=== PATIENT | male | born 1970 | race Caucasian/White ===

== ENCOUNTER → 2017-07-28 | Outpatient (CLI) | payer OTHER ==
--- NOTE | 2017-07-28 17:00 | US ---
EXAMINATION TYPE: US renals and bladder DATE OF EXAM: 07/28/2017 COMPARISON: NONE CLINICAL HISTORY: N23 Unspecified Renal Colic. left side pain. Hx of renal stones. EXAM MEASUREMENTS: Right Kidney: 9.1 x 4.8 x 5.5 cm Left Kidney: 10.8 x 6.9 x 6.9 cm cm Right Kidney: wnl Left Kidney: There is mild hydronephrosis. Two echogenic foci seen with shadowing: Mid pole= 0.7, lo wer pole= 0.8 cm. Bladder: moderately distended, wnl as visualized Bilateral Jets seen No masses are identified. The urinary bladder is anechoic. Bilateral ureteral jets are seen. Cortical medullary differentiation is maintained. IMPRESSION: Left nephrolithiasis with mild hydronephrosis could be indicative of ureteral calculus and partially obstructive stone
== END | disposition home or self-care (01) ==
LOC: RADUSMAIN 15:43
PROVIDERS: ATTEND Family Medicine
DX: N13.2 Hydronephrosis with renal and ureteral calculous obstruction (principal)
CPT/HCPCS: 76770

== ENCOUNTER → 2017-08-17 | Outpatient (CLI) | payer OTHER ==
--- NOTE | 2017-08-17 09:47 | US ---
EXAMINATION TYPE: US kidneys/renal and bladder DATE OF EXAM: 08/17/2017 COMPARISON: US 2018 CLINICAL HISTORY: N13.2 hydronephrosis. Follow up left renal stones and hydronephrosis seen on recent US EXAM MEASUREMENTS: Right Kidney: 10.1 x 5.6 x 6.4 cm Left Kidney: 10.7 x 5.8 x 5.6 cm Right Kidney: no hydronephrosis, multiple small echogenic shadowing foci seen at mid pole = 0.6cm and inferior pole = 0.5cm Left Kidney: no hydronephrosis seen, multiple small echogenic shadowing foci seen at mid pole = 0.7cm and inferior pole = 0.8cm and 0.7cm Bladder: wnl Bilateral Jets seen: yes There is no evidence for hydronephrosis at this point in time. No masses are identified. The urinar y bladder is anechoic. Bilateral ureteral jets are seen. IMPRESSION: Bilateral nonobstructing renal calculi. The previously seen mild left hydronephrosis has resolved in the interim.
== END | disposition home or self-care (01) ==
LOC: RADUSWWP 08:18
PROVIDERS: ATTEND Family Medicine
DX: N20.0 Calculus of kidney (principal)
CPT/HCPCS: 76770

== ENCOUNTER 2021-04-09 06:19 | Day surgery (SDC) | payer BC, OTHER ==
[2021-04-06 14:37] VITALS: BMI 44.6
[~2021-04-09 06:19] MED LIST: LACTATED RINGERS 1,000 ML IV SCH
[2021-04-09 06:40] VITALS: TEMP 97.8
[2021-04-09] MEDS ORDERED: LACTATED RINGERS 1,000 ML IV ONE ×2 (06:41)
[2021-04-09 06:49] LABS: Glucose,Whole Blood 107 mg/dL (75-99)
[2021-04-09] MEDS ORDERED: PROPOFOL 10 MG/ML 20 ML VIAL IV ONE (07:02)
[2021-04-09] MEDS ORDERED: LIDOCAINE 1% INJ 10MG/ML (20 ML MDV) ONE (07:02)
--- NOTE | 2021-04-09 07:25 | P.PCN ---
Date of Procedure: 04/09/21 Procedure(s) Performed: BRIEF HISTORY: Patient is a 50-year-old pleasant male scheduled for an elective colonoscopy as a part of screening for colorectal neoplasia. PROCEDURE PERFORMED: Colonoscopy with biopsy . PREOPERATIVE DIAGNOSIS: screening for colon cancerIV sedation per Anesthesia. PROCEDURE: After informed consent was obtained, the patient, was brought into the endoscopy unit. IV sedation was administered by Anesthesia under continuous monitoring. Digital rectal examination was normal. Initially the Olympus CF-160 flexible video colonoscope was then inserted in the rectum, gradually advanced into the cecum without any difficulty. Careful examination was performed as the scope was gradually being withdrawn. Ileocecal valve and the appendiceal orifice were visualized and appeared normal. Prep was excellent. Mucosa of the cecum, ascending colon, transverse colon, descending colon, appeared normal. The sigmoid colon there was scattered diverticulosis and mild erythema consistent with s diverticular associated colitis and biopsies were done from this area. Also there was a 3 mm polyp in the descending sigmoid colon that was biopsied. sigmoid colon, and rectum appeared normal. Retroflexion was performed in the rectum and no lesions were seen. The patient tolerated the procedure well. IMPRESSION: 3-4 mm sigmoid colon polyp status post cold biopsy Mild sigmoid diverticular associated colitis Scattered sigmoid diverticulosis RECOMMENDATIONS: Findings of this examination were discussed with the patient as well as a family. she was advised for the biopsy results. If the biopsy result adenoma he can have a repeat colonoscopy in 5 years..
[2021-04-09 07:27] VITALS: RESP 16
[2021-04-09 07:39] VITALS: BP 121/81; PULSE 72
== END 2021-04-09 08:19 | disposition home or self-care (01) ==
LOC: ORWHC2ENDO 06:19
PROVIDERS: ATTEND Internal Medicine Gastroenterology
DX: Z12.11 Encounter for screening for malignant neoplasm of colon (principal); D12.5 Benign neoplasm of sigmoid colon; K57.30 Diverticulosis of large intestine without perforation or abscess without bleeding; Z79.899 Other long term (current) drug therapy; I10 Essential (primary) hypertension; E78.5 Hyperlipidemia, unspecified; E11.9 Type 2 diabetes mellitus without complications; E66.01 Morbid (severe) obesity due to excess calories; Z68.41 Body mass index [BMI] 40.0-44.9, adult; Z98.890 Other specified postprocedural states; Z88.6 Allergy status to analgesic agent
CPT/HCPCS: 88305; 45380; J2001; J2704

== ENCOUNTER → 2022-10-04 | Outpatient (CLI) | payer BC ==
--- NOTE | 2022-10-04 14:59 | US ---
EXAMINATION TYPE: US abdomen complete DATE OF EXAM: 10/04/2022 COMPARISON: NONE CLINICAL HISTORY: R10.9 UNSPECIFIED ABDOMINAL PAIN. pain limited due to body habitus and bowel gas. TECHNIQUE: Multiple sonographic images of the abdomen are obtained. FINDINGS: EXAM MEASUREMENTS: Liver Length: 17.4 cm normal less than 15.5 cm. Gallbladder Wall: .2 cm CBD: .3 cm Spleen: 12 cm Right Kidney: 10.4 x 5.5 x 5.5 cm Left Kidney: 10.5 x 7.5 x 4.8 cm PUBLIC SPEAKER NOTES: Pancreas: Obscured by bowel gas Liver: Increased attenuation compatible with mild to moderate fatty infiltration of the liver. Mild hepatomegaly is present. Gallbladder: No stones seen Evidence for sonographic Champagne's sign: No CBD: wnl Spleen: wnl Right Kidney: wnl Left Kidney: Echogenic foci seen lower pole compatible with nonobstructing renal stone. Upper IVC: wnl Abd Aorta: Limited IMPRESSION: 1. Hepatomegaly with mild to moderate fatty infiltration of the liver. 2. Nonobstructing inferior pole left renal stone
== END | disposition home or self-care (01) ==
LOC: RADUSWWP 13:25
PROVIDERS: ATTEND Family Medicine
DX: N20.0 Calculus of kidney (principal); K76.0 Fatty (change of) liver, not elsewhere classified; R16.0 Hepatomegaly, not elsewhere classified
CPT/HCPCS: 76700

== ENCOUNTER → 2023-12-07 | Outpatient (CLI) | payer OTHER ==
[2023-12-07 12:35] LABS: African American GFR (CKD) 65 (>60 ml/min/1.73 sqM); Blood Urea Nitrogen 24 mg/dL (9-20); Non-African American GFR(CKD) 56 (>60 ml/min/1.73 sqM)
--- NOTE | 2023-12-07 15:24 | CT ---
CT urogram with and without contrast HISTORY: Hematuria COMPARISON: None TECHNIQUE: Multiple axial images are obtained through the abdomen and pelvis before and after the une ventful administration of nonionic IV contrast material. Delayed postcontrast images were obtained. FINDINGS: Lung bases are clear. On the pre-IV contrast images, there are no gallstones. There are 3-4 nonobstructing right renal calcifications the largest of which measure 0.60 5.5 mm. There are no focal masses within the liver, pancreas, spleen or adrenal glands and there is no organo megaly. There is marked left-sided hydronephrosis and hydroureter secondary to a 12.4 mm obstructing calculus in the distal left ureter at approximately the L5-S1 level. The bowel loops are normal in caliber and there is no dilatation or obstruction. No inflammatory kathleen ges are identified in the bowel wall or mesentery. There is no free intraperitoneal air or fluid. Mod erate diverticulosis of the descending and sigmoid colon without CT evidence of diverticulitis. There is no pelvic mass, free fluid, abscess or adenopathy. The osseous structures are intact. IMPRESSION: 1. Marked left hydronephrosis and hydroureter secondary to 12.4 mm obstructing calculus in the distal left ureter at approximately the L5-S1 level. 2. Multiple 4 to 5 mm nonobstructing right renal calculi as described above.
== END | disposition home or self-care (01) ==
LOC: RADCTMAIN 11:45
PROVIDERS: ATTEND Family Medicine
DX: N13.2 Hydronephrosis with renal and ureteral calculous obstruction (principal)
CPT/HCPCS: 82565; 84520; 74178; 36415; 74400; Q9967

== ENCOUNTER 2023-12-21 09:02 | Day surgery (SDC) | payer OTHER ==
--- NOTE | 2023-12-20 18:09 | P.GSHP ---
History of Present Illness H&P Date: 12/20/23 Chief Complaint: Low back pain, gross hematuria The patient is a 52-year-old white male who had an episode of urolithiasis 1 year ago. 2 weeks ago, he experienced low back discomfort and gross hematuria. Imaging has shown marked left hydroureteronephrosis due to a 12.4 mm left distal ureteral calculus at the L5-S1 level. The left renal parenchyma is thinned. Several small right renal calculi are seen. Renal ultrasound in September 2022 showed a left lower pole renal calculus, with no evidence of hydronephrosis. - Constitutional Constitutional: Denies chills, Denies fever - Cardiovascular Cardiovascular: Reports high blood pressure - Gastrointestinal Gastrointestinal: Denies nausea, Denies vomiting - Genitourinary (Male) Genitourinary: Reports flank pain, Reports hematuria, Reports kidney stones Past Medical History Past Medical History: Asthma, Diabetes Mellitus, GERD/Reflux, Hyperlipidemia, Hypertension, Osteoarthritis (OA), Skin Disorder Additional Past Medical History / Comment(s): GI issues lately, cramping, diarhhea and constipation from ozempic intermittent. current Kidney stones. Psorasis left arm. allergies, allergy induced asthma History of Any Multi-Drug Resistant Organisms: None Reported Past Surgical History: Orthopedic Surgery Additional Past Surgical History / Comment(s): Cyst removed from foot, left shoulder rotator cuff surgery, surgery to nerve in right elbow. wisdom teeth removed Past Anesthesia/Blood Transfusion Reactions: No Reported Reaction Smoking Status: Current every day smoker - Past Family History Mother Family Medical History: Myocardial Infarction ([place]) Additional Family Medical History / Comment(s): Father Family Medical History: Diabetes Mellitus Additional Family Medical History / Comment(s): pancreatitis, flesh eating ba cteria- Sister(s) Family Medical History: Pulmonary Embolus Medications and Allergies Home Medications Medication Instructions Recorded Confirmed Type Aspirin [Adult Low Dose Aspirin EC] 81 mg PO DAILY 04/06/21 12/20/23 History Atorvastatin (Unknown Dose) 20 mg PO HS 04/06/21 12/20/23 History Cinnamon Bark [Cinnamon] 500 mg PO DAILY 04/06/21 12/20/23 History Kidney Supplement 1 tab PO DAILY 04/06/21 12/20/23 History Multivitamins, Thera [Multivitamin 1 tab PO DAILY 04/06/21 12/20/23 History (formulary)] Escitalopram [Lexapro] 5 mg PO DAILY 12/20/23 12/20/23 History Famotidine 40 mg PO DAILY 12/20/23 12/20/23 History Loratadine 10 mg PO DAILY 12/20/23 12/20/23 History Otc K2 Supp 1 tab PO DAILY 12/20/23 12/20/23 History Semaglutide [Ozempic] 0.5 mg SQ DIRECTED 12/20/23 12/20/23 History Unk Albuterol Inhaler 1 puff INHALATION DIRECTED PRN 12/20/23 12/20/23 History buPROPion [Wellbutrin] 150 mg PO DAILY 12/20/23 12/20/23 History lisinopriL [Prinivil] 10 mg PO DAILY 12/20/23 12/20/23 History Allergies Allergy/AdvReac Type Severity Reaction Status Date / Time meloxicam Allergy Rash/Hives Verified 12/20/23 11:37 Surgical - Exam - General well developed, well nourished, no distress - Neck no masses, trachea midline - Respiratory normal respiratory effort - Abdomen Abdomen: soft, tender (Mild left lower quadrant tenderness), no guarding, no rigid, no rebound - Genitourinary normal penis with no external lesions, testicles non-tender - Psychiatric oriented to time, oriented to person, oriented to place, speech is normal, memory intact Results - Imaging CT scan - abdomen: report reviewed, image reviewed Assessment and Plan (1) Calculus of ureter Status: Acute Code(s): N20.1 - CALCULUS OF URETER SNOMED Code(s): 72090944 Plan: Cystoscopy, left ureteroscopy with Holmium laser lithotripsy and possible stone basketing, left ureteral stent insertion. The procedure has been reviewed in detail with the patient. He has been made aware of potential risks, which include anesthesia, bleeding, infection, ureteral injury, and inability to remove the calculus.
[~2023-12-21 09:02] MED LIST changes: +HYDROmorphone 0.5 MG/0.5 ML SYRINGE IVP PRN; -LACTATED RINGERS 1,000 ML IV SCH; +fentaNYL (PF) 50 MCG/ML 2 ML AMP IV PRN
--- NOTE | 2023-12-21 09:39 | XR ---
EXAMINATION TYPE: XR KUB DATE OF EXAM: 12/21/2023 9:16 AM CLINICAL INDICATION:Male, 52 years old with history of N20.0 calculus; COMPARISON: 12/07/2023. TECHNIQUE: One radiographic view of the abdomen was obtained. FINDINGS: The bowel gas pattern is nonspecific without dilated loops of small or large bowel. There i s no evidence for organomegaly or pneumoperitoneum. The osseous structures are intact. Calculus pro jecting over the left sacroiliac joint measuring 13 mm.. Fecal material and gas are demonstrated thro ughout the colon and rectum. IMPRESSION: There remains a left ureteral calculus in the pelvic brim as seen on prior urogram.
[2023-12-21] MEDS: IV FLUID CONTINUATION 1,000 ML IV ONE (10:00)
[2023-12-21] MEDS: LIDOCAINE 1% (10MG/ML) FOR IV START INTRADERMA PRN (10:01)
[2023-12-21] MEDS: LACTATED RINGERS 1,000 ML IV SCH (10:02)
[2023-12-21] MEDS: ONDANSETRON 4 MG/2 ML VIAL IVP ONE (10:11)
[2023-12-21] MEDS: DEXAMETHASONE SOD PHOSPHATE 4 MG/ML 1 ML VIAL IV ONE (10:12)
[2023-12-21] MEDS: MIDAZOLAM 2 MG/2 ML VIAL IV ONE (10:12)
[2023-12-21 10:23] LABS: Glucose,Whole Blood 84 mg/dL (70-110)
[2023-12-21] MEDS ORDERED: ePHEDrine 50 MG/ML 1 ML VIAL ONE (12:32)
[2023-12-21] MEDS ORDERED: LIDOCAINE 1% INJ 10MG/ML (20 ML MDV) ONE (12:32)
[2023-12-21] MEDS ORDERED: PROPOFOL 10 MG/ML 20 ML VIAL IV ONE (12:32)
[2023-12-21] MEDS ORDERED: MIDAZOLAM 2 MG/2 ML VIAL ONE (12:32)
[2023-12-21] MEDS ORDERED: SUCCINYLCHOLINE CHLORIDE 200 MG/10 ML VIAL IV ONE (12:32)
[2023-12-21] MEDS ORDERED: fentaNYL (PF) 50 MCG/ML 2 ML AMP ONE (12:32)
[2023-12-21] MEDS ORDERED: KETAMINE HCL IN 0.9 % NACL 50 MG/5 ML SYRINGE ONE (12:32)
[2023-12-21] MEDS: LACTATED RINGERS 1,000 ML IV ONE (14:16)
--- NOTE | 2023-12-21 14:28 | P.OP ---
Date of Procedure: 12/21/23 Preoperative Diagnosis: Left ureteral calculus Postoperative Diagnosis: Same Procedure(s) Performed: Cystoscopy, left ureteroscopy with Holmium laser lithotripsy, left ureteral stent insertion Anesthesia: DEBORAHA Surgeon: Tony Vicente Estimated Blood Loss (ml): 5 IV fluids (ml): 800 Pathology: other (Left ureteral calculus fragments, sent for chemical analysis) Condition: stable Disposition: PACU Indications for Procedure: The patient is a 52-year-old white male who had an episode of urolithiasis 1 year ago. 2 weeks ago, he experienced low back discomfort and gross hematuria. Imaging has shown marked left hydroureteronephrosis due to a 12.4 mm left distal ureteral calculus at the L5-S1 level. The left renal parenchyma is thinned. Several small right renal calculi are seen. Renal ultrasound in September 2022 showed a left lower pole renal calculus, with no evidence of hydronephrosis. Operative Findings: Large left ureteral calculus at the level of the S-1, impacted, partially fragmented. Description of Procedure: The patient was taken to the operating room and placed in the dorsolithotomy position, with legs supported in Víctor stirrups. The external genitalia was prepped and draped sterilely. The 30 lens was used to introduce the 21-Italian Melo cystoscopic sheath through the urethra and into the bladder under direct vision. The prostatic urethra showed evidence of mild lateral lobe enlargement. The bladder was examined in its entirety. Both ureteral orifices were normal anatomic location and configuration. No tumors or foreign bodies were seen. The Melo semirigid ureteroscope was advanced into the bladder, and the left ureteral orifice was cannulated. The ureteroscope was slowly advanced under direct vision, up to the calculus. The 365 micron Holmium laser probe was passed through the ureteroscope, and lithotripsy was performed. Portions of the calculus were adherent to the ureteral wall. In these areas, care was taken to pry the calculus away from the ureteral wall prior to performing lithotripsy, to avoid ureteral injury. The majority of the calculus was fragmented, such that the ureteral lumen was established. A portion of the calculus was difficult to treat on the medial aspect, possibly adherent to the ureteral wall. The decision was made at this time to place a ureteral stent and complete the procedure at a later date. Therefore, a 0.035 inch Glidewire was passed through the ureteroscope and up to the left renal pelvis. The ureteroscope was removed, and the Glidewire was backloaded into the cystoscope, which was passed into the bladder. A 26 cm, 6 Italian double-J ureteral stent was placed over the wire. Proper stent positioning was verified fluoroscopically and endoscopically. The bladder was emptied, and removed calculus fragments were sent for chemical analysis. The cystoscope was then removed. The patient tolerated the procedure well and was taken to the recovery room in stable condition. [facility] [place] Report: Procedure Acuity: Semi-Urgent Stone Size and Location: 12 mm, left mid ureter Ureteral Dilation: No Ureteral Access Sheath Used: No Stone Sent for Analysis: Yes All Stones/Fragments Were Removed with a Basket: No Complications: No Preoperative Antibiotics Given: Yes Stent Placed: Yes If Stent Placed, Was String Left Attached: No If Stent Placed, When is it to be Removed: 2 weeks Discharge Medications: Tamsulosin, tramadol
[2023-12-21 14:33] VITALS: TEMP 97.1
--- NOTE | 2023-12-21 15:00 | FL ---
EXAMINATION TYPE: FL guidance operating room Intraoperative/procedural fluoroscopic services were pro vided. Total fluoroscopy time is 7.8 seconds with a total of 1 submitted images to PACS. Please see t he operative/procedural note for further details. DAP: [id number] mGym2
[2023-12-21 15:30] LABS: Glucose,Whole Blood 116 mg/dL (70-110)
[2023-12-21 15:36] VITALS: RESP 18
[2023-12-21 15:56] VITALS: BP 117/78; PULSE 89
== END 2023-12-21 16:18 | disposition home or self-care (01) ==
LOC: OR 09:02
PROVIDERS: ATTEND Urology
DX: N20.1 Calculus of ureter (principal); E11.9 Type 2 diabetes mellitus without complications; E78.5 Hyperlipidemia, unspecified; I10 Essential (primary) hypertension; J45.909 Unspecified asthma, uncomplicated; K21.9 Gastro-esophageal reflux disease without esophagitis; M19.90 Unspecified osteoarthritis, unspecified site; F17.200 Nicotine dependence, unspecified, uncomplicated; Z88.8 Allergy status to other drugs, medicaments and biological substances; Z79.899 Other long term (current) drug therapy
CPT/HCPCS: 52356; 82365; 74018; C2625; C1758; C1769; J2250; J0330; J1100; J0690; J2405; J2001; J3010; J2704

== ENCOUNTER 2024-01-11 09:31 | Day surgery (SDC) | payer OTHER ==
--- NOTE | 2024-01-06 08:41 | P.GSHP ---
History of Present Illness H&P Date: 01/06/24 Chief Complaint: Low back pain, gross hematuria The patient is a 52-year-old white male who had an episode of urolithiasis 1 year ago. 2 weeks ago, he experienced low back discomfort and gross hematuria. Imaging has shown marked left hydroureteronephrosis due to a 12.4 mm left distal ureteral calculus at the L5-S1 level. The left renal parenchyma is thinned. Several small right renal calculi are seen. Renal ultrasound in September 2022 showed a left lower pole renal calculus, with no evidence of hydronephrosis. On December 20, he underwent left ureteroscopy with laser lithotripsy. The calculus was partially fragmented, and a ureteral stent was placed. The calcium was composed predominantly of calcium oxalate monohydrate. - Constitutional Constitutional: Denies chills, Denies fever - Cardiovascular Cardiovascular: Reports high blood pressure - Genitourinary (Male) Genitourinary: Reports flank pain, Reports hematuria, Reports kidney stones, Denies dysuria Past Medical History Past Medical History: Asthma, Diabetes Mellitus, GERD/Reflux, Hyperlipidemia, Hypertension, Osteoarthritis (OA), Skin Disorder Additional Past Medical History / Comment(s): GI issues lately, cramping, diarhhea and constipation from ozempic intermittent. current Kidney stones. Psorasis left arm. allergies, allergy induced asthma History of Any Multi-Drug Resistant Organisms: None Reported Past Surgical History: Orthopedic Surgery Additional Past Surgical History / Comment(s): Cyst removed from foot, left shoulder rotator cuff surgery, surgery to nerve in right elbow. wisdom teeth removed Past Anesthesia/Blood Transfusion Reactions: No Reported Reaction Smoking Status: Current every day smoker - Past Family History Mother Family Medical History: Myocardial Infarction ([place]) Additional Family Medical History / Comment(s): Father Family Medical History: Diabetes Mellitus Additional Family Medical History / Comment(s): pancreatitis, flesh eating bacteria- Sister(s) Family Medical History: Pulmonary Embolus Medications and Allergies Home Medications Medication Instructions Recorded Confirmed Type Aspirin [Adult Low Dose Aspirin EC] 81 mg PO DAILY 04/06/21 12/20/23 History Atorvastatin (Unknown Dose) 20 mg PO HS 04/06/21 12/20/23 History Cinnamon Bark [Cinnamon] 500 mg PO DAILY 04/06/21 12/20/23 History Kidney Supplement 1 tab PO DAILY 04/06/21 12/20/23 History Multivitamins, Thera [Multivitamin 1 tab PO DAILY 04/06/21 12/20/23 History (formulary)] Escitalopram [Lexapro] 5 mg PO DAILY 12/20/23 12/20/23 History Famotidine 40 mg PO DAILY 12/20/23 12/20/23 History Loratadine 10 mg PO DAILY 12/20/23 12/20/23 History Otc K2 Supp 1 tab PO DAILY 12/20/23 12/20/23 History Semaglutide [Ozempic] 0.5 mg SQ DIRECTED 12/20/23 12/20/23 History Unk Albuterol Inhaler 1 puff INHALATION DIRECTED PRN 12/20/23 12/20/23 History buPROPion [Wellbutrin] 150 mg PO DAILY 12/20/23 12/20/23 History lisinopriL [Prinivil] 10 mg PO DAILY 12/20/23 12/20/23 History Tamsulosin [Flomax] 0.4 mg PO DAILY #30 cap 12/21/23 Rx traMADol HCl [Ultram] 50 mg PO Q6HR PRN 3 Days #12 tab 12/21/23 Rx Allergies Allergy/AdvReac Type Severity Reaction Status Date / Time meloxicam Allergy Rash/Hives Verified 12/20/23 11:37 Surgical - Exam - General well developed, well nourished, no distress - Respiratory normal respiratory effort - Abdomen Abdomen: soft, tender (Mild left lower quadrant tenderness), no guarding, no rigid, no rebound - Genitourinary normal penis with no external lesions, testicles non-tender - Psychiatric oriented to time, oriented to person, oriented to place, speech is normal, memory intact Results - Imaging CT scan - abdomen: report reviewed, image reviewed Assessment and Plan (1) Calculus of ureter Status: Acute Code(s): N20.1 - CALCULUS OF URETER SNOMED Code(s): 65800699 Plan: Cystoscopy, left ureteral stent removal, left ureteroscopy with Holmium laser lithotripsy and stone basketing. Risks include anesthesia, bleeding, infection, ureteral injury, and inability to remove the remainder of the calculus. The patient is at risk of developing a ureteral stricture, given that the calculus was impacted and adherent to the ureteral mucosa.
[~2024-01-11 09:31] MED LIST changes: +LIDOCAINE 1% (10MG/ML) FOR IV START INTRADERMA PRN; +MIDAZOLAM 2 MG/2 ML VIAL IV PRN; -fentaNYL (PF) 50 MCG/ML 2 ML AMP IV PRN; +fentaNYL (PF) 50 MCG/ML 2 ML AMP IVP PRN
--- NOTE | 2024-01-11 10:02 | XR ---
EXAMINATION TYPE: XR KUB DATE OF EXAM: 01/11/2024 9:46 AM CLINICAL INDICATION:Male, 53 years old with history of N20.0 stones; [facility] COMPARISON: 12/21/2023. TECHNIQUE: One radiographic view of the abdomen was obtained. FINDINGS: The bowel gas pattern is nonspecific without dilated loops of small or large bowel. There i s no evidence for organomegaly or pneumoperitoneum. The osseous structures are intact. Right renal calculi measuring up to 4 mm. Fecal material and gas are demonstrated throughout the colon and rectum . Left ureteral stent with superior and inferior pigtails in appropriate position. IMPRESSION: Left ureteral stent in appropriate position. Right renal calculus at 4 mm. Nonspecific bowel gas pattern without radiographic evidence for acute process.
[2024-01-11] MEDS: IV FLUID CONTINUATION 1,000 ML IV ONE (10:11)
[2024-01-11 10:36] LABS: Glucose,Whole Blood 91 mg/dL (70-110)
[2024-01-11 10:46] LABS: Basophils % (A) 1 %; Eosinophils # (A) 0.2 k/uL (0-0.7); Eosinophils % (A) 4 %; HCT 44.6 % (39.0-53.0); HGB 14.2 gm/dL (13.0-17.5); Lymphocytes # (A) 1.2 k/uL (1.0-4.8); Lymphocytes % (A) 19 %; MCH 30.5 pg (25.0-35.0); MCHC 31.9 g/dL (31.0-37.0); MCV 95.5 fL (80.0-100.0); Mean Platelet Volume 8.8; Monocytes # (A) 0.4 k/uL (0-1.0); Monocytes % (A) 6 %; Neutrophils # (A) 4.4 k/uL (1.3-7.7); Neutrophils % (A) 69 %; Platelet Count 165 k/uL (150-450); RBC 4.67 m/uL (4.30-5.90); RDW 13.8 % (11.5-15.5); WBC 6.3 k/uL (3.8-10.6)
[2024-01-11] MEDS: LACTATED RINGERS 1,000 ML IV SCH (10:48)
[2024-01-11] MEDS: ONDANSETRON 4 MG/2 ML VIAL IVP ONE (10:48)
[2024-01-11] MEDS: DEXAMETHASONE SOD PHOSPHATE 4 MG/ML 1 ML VIAL IV ONE (10:48)
[2024-01-11 10:57] LABS: ALT 21 U/L (4-49); AST 13 U/L (17-59); African American GFR (CKD) 64 (>60 ml/min/1.73 sqM); Albumin 4.1 g/dL (3.5-5.0); Alkaline Phosphatase 72 U/L (38-126); Anion Gap 4 mmol/L; Blood Urea Nitrogen 33 mg/dL (9-20); Carbon Dioxide 21 mmol/L (22-30); Chloride 111 mmol/L (98-107); Glucose 86 mg/dL (74-99); Non-African American GFR(CKD) 55 (>60 ml/min/1.73 sqM); Potassium 4.7 mmol/L (3.5-5.1); Sodium 136 mmol/L (137-145); Total Bilirubin 0.6 mg/dL (0.2-1.3); Total Protein 6.4 g/dL (6.3-8.2)
[2024-01-11] MEDS ORDERED: SUCCINYLCHOLINE CHLORIDE 200 MG/10 ML VIAL IV ONE (11:55)
[2024-01-11] MEDS ORDERED: ePHEDrine 50 MG/ML 1 ML VIAL ONE (11:55)
[2024-01-11] MEDS ORDERED: fentaNYL (PF) 50 MCG/ML 2 ML AMP ONE (11:55)
[2024-01-11] MEDS ORDERED: PHENYLEPHRINE-0.9% NACL SYG 1,000 MCG/10 ML SYRINGE ONE (11:55)
[2024-01-11] MEDS ORDERED: LIDOCAINE 1% INJ 10MG/ML (20 ML MDV) ONE (11:55)
[2024-01-11] MEDS ORDERED: PROPOFOL 10 MG/ML 20 ML VIAL IV ONE (11:55)
[2024-01-11] MEDS ORDERED: MIDAZOLAM 2 MG/2 ML VIAL ONE (11:55)
[2024-01-11] MEDS: LACTATED RINGERS 1,000 ML IV ONE (13:06)
--- NOTE | 2024-01-11 13:14 | P.OP ---
Date of Procedure: 01/11/24 Preoperative Diagnosis: Left ureteral calculus Postoperative Diagnosis: Same Procedure(s) Performed: Cystoscopy, left ureteral stent removal, left ureteroscopy with Holmium laser lithotripsy and stone basketing Anesthesia: CAMRON Surgeon: Tony Vicente Estimated Blood Loss (ml): 5 IV fluids (ml): 900 Pathology: none sent Condition: stable Disposition: PACU Indications for Procedure: The patient is a 52-year-old white male who had an episode of urolithiasis 1 year ago. 2 weeks ago, he experienced low back discomfort and gross hematuria. Imaging has shown marked left hydroureteronephrosis due to a 12.4 mm left distal ureteral calculus at the L5-S1 level. The left renal parenchyma is thinned. Several small right renal calculi are seen. Renal ultrasound in September 2022 showed a left lower pole renal calculus, with no evidence of hydronephrosis. On December 20, he underwent left ureteroscopy with laser lithotripsy. The calculus was partially fragmented, and a ureteral stent was placed. The calcium was composed predominantly of calcium oxalate monohydrate. Operative Findings: Left ureteral calculus, fragmented and removed completely. Description of Procedure: The patient was taken to the operating room and placed in the dorsolithotomy position, with legs supported in Víctor stirrups. The external genitalia was prepped and draped sterilely. The 30 lens was used to introduce the 21-Turkish Melo cystoscopic sheath through the urethra and into the bladder under direct vision. The prostatic urethra showed evidence of mild lateral lobe enlargement. The bladder was examined in its entirety. No abnormalities were seen. Grasping forceps were used to grasp the distal end of the left ureteral stent, which was removed along with the cystoscope. The Melo semirigid ureteroscope was advanced into the bladder under direct vision, and the left ureteral orifice was cannulated. The ureteroscope was slowly advanced under direct vision, but the calculus could not be reached. Therefore, the semirigid ureteroscope was removed and the Melo Cobra flexible ureteroscope was advanced in the bladder under direct vision. The left ureteral orifice was cannulated, and the ureteroscope was slowly advanced under direct vision, up to the calculus, which was impacted. The 272 micron Holmium laser probe was passed through the ureteroscope, and lithotripsy was performed. Care was taken to avoid any lasering to the ureteral wall. After fragmenting the calculus, virtually all of the small calculus fragments passed distally into the bladder. The several remaining calculus fragments were removed using a 1.9 Turkish 0 tip nitinol basket. Final inspection of the ureter showed edema where the calculus had been impacted. There was no evidence of ureteral trauma, and no residual calculus fragments. After removing the ureteroscope, the cystoscope was advanced into the bladder and all calculus fragments were removed from the bladder. The bladder was emptied and the cystoscope removed. The patient tolerated the procedure well and was taken to the recovery room in stable condition. [facility] [place] Report: Procedure Acuity: Elective Stone Size and Location: 7 mm, left mid ureter Ureteral Dilation: No Ureteral Access Sheath Used: No Stone Sent for Analysis: No All Stones/Fragments Were Removed with a Basket: Yes Complications: No Preoperative Antibiotics Given: Yes Stent Placed: No Discharge Medications: None
[2024-01-11 13:25] VITALS: TEMP 97
--- NOTE | 2024-01-11 13:31 | FL ---
EXAMINATION TYPE: FL guidance operating room Intraoperative/procedural fluoroscopic services were pro vided. Total fluoroscopy time is 0.04 seconds with a total of 1 submitted images to PACS. Please see the operative/procedural note for further details. DAP: 253.08 cGycm2
[2024-01-11 13:51] VITALS: RESP 14
[2024-01-11 14:14] VITALS: BP 111/79; PULSE 93
== END 2024-01-11 14:29 | disposition home or self-care (01) ==
LOC: OR 09:31
PROVIDERS: ATTEND Urology
DX: N20.1 Calculus of ureter (principal); M19.90 Unspecified osteoarthritis, unspecified site; K21.9 Gastro-esophageal reflux disease without esophagitis; J45.909 Unspecified asthma, uncomplicated; I10 Essential (primary) hypertension; E78.5 Hyperlipidemia, unspecified; E11.9 Type 2 diabetes mellitus without complications; F32.A Depression, unspecified; F17.210 Nicotine dependence, cigarettes, uncomplicated; Z88.8 Allergy status to other drugs, medicaments and biological substances; Z79.82 Long term (current) use of aspirin; Z79.899 Other long term (current) drug therapy; Z98.890 Other specified postprocedural states
CPT/HCPCS: 80053; 85025; 74018; 52353; C1769; J2250; J0330; J1100; J0690; J2405; J2001; J3010; J2704; J2371

== ENCOUNTER → 2024-03-25 | Outpatient (CLI) | payer OTHER ==
--- NOTE | 2024-03-25 16:05 | US ---
EXAMINATION TYPE: US kidneys/renal and bladder DATE OF EXAM: 03/25/2024 COMPARISON: CT urogram 12/07/2023, abdominal ultrasound 10/04/2022 CLINICAL INDICATION: Male, 53 years old with history of N13.2 HYDRONEPHROSIS WITH RENAL AND URETERAL CALCU; known renal stones, recent left blockage, lithotripsy and stent. Stent removed 3 weeks ago. EXAM MEASUREMENTS: Right Kidney:9.9 x 4.4 x 5.4 cm Left Kidney: 8.6 x 4.6 x 5.2 cm Right Kidney: tiny echogenic foci may represent small stone 0.7 x 0.7cm Left Kidney: No hydronephrosis or masses seen Bladder: not fully distended There is no evidence for hydronephrosis at this point in time. Corticomedullary differentiation is ma intained bilaterally. No shadowing left renal calculi. Tiny echogenic right mid kidney focus. No mass es are identified. The urinary bladder is anechoic. Bilateral ureteral jets are seen. IMPRESSION: 1. No hydronephrosis. 2. Nonobstructive right renal calculus.
== END | disposition home or self-care (01) ==
LOC: RADUSWWP 15:31
PROVIDERS: ATTEND Urology
DX: N13.2 Hydronephrosis with renal and ureteral calculous obstruction
CPT/HCPCS: 76770

== ENCOUNTER → 2024-03-30 | Outpatient (CLI) | payer OTHER ==
--- NOTE | 2024-03-30 09:16 | CTL ---
EXAMINATION TYPE: CT Low Dose Lung DATE OF EXAM: 03/30/2024 8:02 AM CLINICAL INDICATION: Male, 53 years old with history of Z12.2 ENCNTR SCREEN FOR MALIGNANT NEOPLASM OF RESP; current smoker 1/2-1 pack per day x30 years , history of tobacco use. COMPARISON: None. TECHNIQUE: Multiple axial non-contrast scans were obtained from approximately the lung apices through the upper abdomen. Coronal and sagittal reformatted images were obtained. Low dose technique was uti lized. CT DLP: 149.5 mGycm, Automated exposure control for dose reduction was used. CT Contrast: Contrast used: None Oral contrast used: None FINDINGS: ======== Lack of intravenous contrast and low dose technique limits the evaluation of the vascular and soft ti ssue structures. LUNGS: No evidence of pulmonary fibrosis. No evidence of focal consolidation, pneumothorax or pleural effusion. Centrilobular emphysema changes. Nodules: RUL: None. RML: None. RLL: None. ETHEL: None. LLL: None. AIRWAY: Patent and unremarkable. HEART: Size within normal limits. MEDIASTINUM: No gross evidence of adenopathy. VASCULATURE: No aortic aneurysm. MUSCULOSKELETAL: Moderate disc degeneration changes are present throughout the thoracolumbar spine. B ridging syndesmophytes throughout the anterior aspect of the spine. SOFT TISSUES/LYMPH NODES: Unremarkable. LOWER NECK: No significant findings. UPPER ABDOMEN: No significant findings. IMPRESSION: 1. No clinically significant pulmonary nodules. 2. Mild emphysema. 3. Diffuse idiopathic skeletal hyperostosis. CT LUNG RAD AND CT CHEST RECOMMENDATION: Lung-Rad 2 Benign Appearance or Behavior: Continue annual sc reening with LDCT in 12 months. S Modifier (other clinically significant findings): None Recommend smoking cessation (if current smoker), or continuation of smoking cessation (if prior smoke r). Annual screening for lung cancer with low-dose computed tomography is recommended in adults ages 55 to 77 years who have a 30 pack-year smoking history and currently smoke or have quit within the pa st 15 years. Screening should be discontinued once a person has not smoked for 15 years or develops a health problem that substantially limits life expectancy or the ability or willingness to have curat reagan lung surgery. Lung rads 2021 [email or web address]
== END | disposition home or self-care (01) ==
LOC: RADCTMAIN 07:07
PROVIDERS: ATTEND Family Medicine
DX: Z12.2 Encounter for screening for malignant neoplasm of respiratory organs
CPT/HCPCS: 71271

== ENCOUNTER → 2024-05-14 | Outpatient (CLI) | payer OTHER ==
--- NOTE | 2024-05-14 22:13 | MR ---
EXAMINATION TYPE: MR shoulder RT wo con DATE OF EXAM: 05/14/2024 COMPARISON: Outside right shoulder x-ray May 08, 2024 HISTORY: Right shoulder pain x2 months, difficult to raise arm, Had a fall TECHNIQUE: Multiplanar, multisequence imaging of the right shoulder is performed without contrast. FINDINGS: Rotator Cuff: Some mild increased signal along the supraspinatus tendon. More prominent moderate incr eased signal in the infraspinatus tendon. Heterogeneous subscapularis tendon with diffuse increased s ignal and surrounding fluid, some partial tearing distally is felt present. Rotator cuff muscle bulk is preserved. Acromioclavicular Joint: Moderate narrowing greatest posteriorly with subchondral cystic changes pres ent. There is mild to moderate spurring in severe capsular hypertrophy with loss of underlying fat pl ane noted. Glenohumeral Joint: Moderate size joint effusion. No significant spurring. Some narrowing is present. Labrum: The labrum appears grossly intact given limitation of non-arthrogram study. Biceps Tendon: The long head of biceps is in normal location within bicipital groove. Intracapsular p ortion is not as well visualized. Some internal increased signal thought present axial image 16 Bone marrow signal: Heterogeneous increased T2 signal anterior humeral head. Other: No additional significant abnormality is appreciated. IMPRESSION: 1. Mild tendinosis of the supraspinatus tendon. More prominent moderate tendinosis of the infraspinat us tendon. There is [id number] tendinosis and partial tearing of the subscapularis tendon. 2. Focal tearing of the intracapsular portion of long head of biceps tendon. 3. Moderate-size glenohumeral joint effusion. 4. Moderate to severe AC joint arthropathy with suggestion of underlying impingement, correlate clini sue. [facility], , 05/14/2024 10:10 PM
== END | disposition home or self-care (01) ==
LOC: RADMRIMAIN 20:15
PROVIDERS: ATTEND Orthopaedic Surgery

== ENCOUNTER → 2024-06-22 | Outpatient (CLI) | payer OTHER ==
[2024-06-22 13:31] LABS: Basophils # (A) 0.04 X 10*3/uL (0.00-0.10); Basophils % (A) 0.7 %; Eosinophils # (A) 0.23 X 10*3/uL (0.04-0.35); Eosinophils % (A) 3.8 %; HCT 47.2 % (39.6-50.0); HGB 15.4 g/dL (13.0-17.0); Lymphocytes # (A) 1.33 X 10*3/uL (0.90-5.00); Lymphocytes % (A) 22.2 %; MCH 29.7 pg (27.0-32.0); MCHC 32.6 g/dL (32.0-37.0); MCV 90.9 FL (80.0-97.0); Mean Platelet Volume 11.1 FL (9.5-12.2); Monocytes # (A) 0.64 X 10*3/uL (0.20-1.00); Monocytes % (A) 10.7 %; NRBC Per 100 WBC 0 X 10*3/uL (0.00-0.01); Neutrophils # (A) 3.74 X 10*3/uL (1.80-7.70); Neutrophils % (A) 62.3 %; Platelet Count 183 X 10*3/uL (140-440); RBC 5.19 X 10*6/uL (4.40-5.60); RDW 15.1 % (11.5-14.5)
[2024-06-22 13:40] LABS: BUN/Creat Ratio 15.29 Ratio (12.00-20.00); Blood Urea Nitrogen 21.4 mg/dL (9.0-27.0); Calcium 9.5 mg/dL (8.7-10.3); Carbon Dioxide 24.3 mmol/L (21.6-31.8); Chloride 107 mmol/L (96-109); Glucose 87 mg/dL (70-110); Potassium 4.9 mmol/L (3.5-5.5); Sodium 142 mmol/L (135-145)
== END | disposition home or self-care (01) ==
LOC: LABPAT 08:00
PROVIDERS: ATTEND Orthopaedic Surgery
DX: Z01.812 Encounter for preprocedural laboratory examination (principal); M75.41 Impingement syndrome of right shoulder
CPT/HCPCS: 80048; 85025

== ENCOUNTER 2024-06-28 08:01 | Day surgery (SDC) | payer OTHER ==
--- NOTE | 2024-06-27 10:04 | P.HPOR ---
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 He notes pain with overhead activity and at night. He notes he fell in his garage. Review of Systems Per HPI Past Medical History Past Medical History: Asthma, Diabetes Mellitus, GERD/Reflux, Hyperlipidemia, Hypertension, Osteoarthritis (OA), Skin Disorder Additional Past Medical History / Comment(s): kidney stones josé miguel,GI issues lately, cramping, diarhhea and constipation from ozempic intermittent, Psorasis left arm. allergies, allergy induced asthma History of Any Multi-Drug Resistant Organisms: None Reported Past Surgical History: Orthopedic Surgery Additional Past Surgical History / Comment(s): Cyst removed from foot, left shoulder rotator cuff surgery, surgery to nerve in right elbow. wisdom teeth removed, lithotripsy, pain procedure Past Anesthesia/Blood Transfusion Reactions: No Reported Reaction Smoking Status: Current every day smoker - Past Family History Mother Family Medical History: Myocardial Infarction ([place]) Additional Family Medical History / Comment(s): Father Family Medical History: Diabetes Mellitus Additional Family Medical History / Comment(s): pancreatitis, flesh eating bacteria- Sister(s) Family Medical History: Pulmonary Embolus Medications and Allergies Home Medications Medication Instructions Recorded Confirmed Type Aspirin [Adult Low Dose Aspirin EC] 81 mg PO DAILY 04/06/21 06/26/24 History Multivitamins, Thera [Multivitamin 1 tab PO DAILY 04/06/21 06/26/24 History (formulary)] Albuterol Inhaler [Ventolin Hfa 1 - 2 puff INHALATION Q6H PRN 12/20/23 06/26/24 History Inhaler] Escitalopram [Lexapro] 5 mg PO DAILY 12/20/23 06/26/24 History Famotidine 40 mg PO DAILY PRN 12/20/23 06/26/24 History Loratadine 10 mg PO DAILY 12/20/23 06/26/24 History Semaglutide [Ozempic] 2 mg SQ TH 12/20/23 06/26/24 History buPROPion [Wellbutrin] 150 mg PO QAM 12/20/23 06/26/24 History Atorvastatin [Lipitor] 20 mg PO DAILY 06/26/24 06/26/24 History Ginkgo Biloba [place] Extract [Ginkgo 1 tab PO DAILY 06/26/24 06/26/24 History Biloba] Allergies Allergy/AdvReac Type Severity Reaction Status Date / Time meloxicam Allergy Rash/Hives, Verified 06/26/24 14:27 itching Physical Examination - Shoulder right Tenderness with palpation: anterior, bicipital groove Pain: with abduction, with forward flexion ROM: forward flexion: 140 degrees ROM: internal rotation: lower lumbar ROM: external rotation: 60 degrees Crepitus with motion: Yes Strength: abduction: 4/5 Strength: external rotation: 5/5 Tests: internal impingement tests: positive, external impingment tests: positive Results Is well-developed well-nourished male approximately 5 foot 8, 245 pounds of endomorphic habitus. HEENT exam is nonfocal, neck is supple. He is tender about the right shoulder anterior subacromial space and bicipital groove. He is also tender over the acromioclavicular joint. Impingement test, Neer test, and speed tests are positive. He has pain with cross body adduction. He also has pain with liftoff. - Diagnostic results Shoulder MRI: image reviewed (MRI of the right shoulder shows increased signal involving the supraspinatus and infraspinatus insertion along with partial tear of the intra-articular portion long head of the biceps and upper subscapularis partial tear. Acromioclavicular joint arthritis is noted.) Assessment and Plan Assessment: Acute right rotator cuff tear/proximal biceps partial tear/acromioclavicular joint arthritis Plan: I talked with patient at length regarding his condition along with treatment options. At this point is quite symptomatic having pain and weakness after this acute injury. After a thorough discussion he opts to proceed with surgery. We will plan to proceed with right shoulder arthroscopy with probable subacromial decompression, rotator cuff debridement versus repair, possible biceps tenotomy along with possible distal clavicular resection. Risks and benefits are discussed at length in layman's terms. We will likely perform as an outpatient procedure.
[~2024-06-28 08:01] MED LIST changes: -HYDROmorphone 0.5 MG/0.5 ML SYRINGE IVP PRN; -MIDAZOLAM 2 MG/2 ML VIAL IV PRN; +droPERidol 5 MG/2 ML VIAL IVP ONE; -fentaNYL (PF) 50 MCG/ML 2 ML AMP IVP PRN
[2024-06-28] MEDS: IV FLUID CONTINUATION 1,000 ML IV ONE ×2 (08:27→12:38)
[2024-06-28 08:45] VITALS: RESP 16
[2024-06-28 08:56] LABS: Glucose,Whole Blood 92 mg/dL (70-110)
[2024-06-28] MEDS: DEXAMETHASONE SOD PHOSPHATE 4 MG/ML 1 ML VIAL IV ONE (09:01)
[2024-06-28] MEDS: ONDANSETRON 4 MG/2 ML VIAL IVP ONE (09:01)
[2024-06-28] MEDS: LACTATED RINGERS 1,000 ML IV SCH (09:01)
[2024-06-28] MEDS: MIDAZOLAM 2 MG/2 ML VIAL IV ONE (09:14)
[2024-06-28] MEDS ORDERED: PHENYLEPHRINE 10 MG/ML VIAL ONE (10:11)
[2024-06-28] MEDS ORDERED: DEXAMETHASONE SOD PHOSPHATE 4 MG/ML 1 ML VIAL ONE (10:11)
[2024-06-28] MEDS ORDERED: NEOSTIGMINE 1 MG/ML 10 ML VIAL ONE (10:11)
[2024-06-28] MEDS ORDERED: GLYCOPYRROLATE 0.2 MG/ML 2 ML VIAL ONE (10:11)
[2024-06-28] MEDS ORDERED: PROPOFOL 10 MG/ML 20 ML VIAL IV ONE (10:11)
[2024-06-28] MEDS ORDERED: LIDOCAINE 1% INJ 10MG/ML (20 ML MDV) ONE (10:11)
[2024-06-28] MEDS ORDERED: ROCURONIUM 10 MG/ML (5 ML VIAL) IV ONE (10:11)
[2024-06-28] MEDS ORDERED: ROPIVACAINE 5 MG/ML 30 ML VIAL ONE (10:11)
[2024-06-28] MEDS ORDERED: SUCCINYLCHOLINE CHLORIDE 200 MG/10 ML VIAL IV ONE (10:11)
[2024-06-28] MEDS ORDERED: ePHEDrine 50 MG/ML 1 ML VIAL ONE (10:11)
[2024-06-28] MEDS ORDERED: fentaNYL (PF) 50 MCG/ML 2 ML AMP ONE (10:11)
[2024-06-28] MEDS: EPINEPHrine (PF) 1 ML in SODIUM CHLORIDE 0.9% IRRIGATIO 3,000 ML IRRIGATION ONE ×4 (10:40)
--- NOTE | 2024-06-28 11:31 | P.OP ---
Date of Procedure: 06/28/24 Preoperative Diagnosis: Right shoulder impingement/rotator cuff tear Postoperative Diagnosis: 1-1/2 cm right rotator cuff tear, high-grade partial-thickness tear intra- articular portion long head of the biceps Procedure(s) Performed: Right shoulder arthroscopic subacromial decompression/biceps tenotomy/rotator cuff repair Implants: Arthrex 5.5 mm swivel lock anchor x 1 Anesthesia: CAMRON, david Surgeon: Guille Ross Glass Novelty Maker #1: Triston Laurent Estimated Blood Loss (ml): 10 Pathology: none sent Condition: stable Disposition: PACU Indications for Procedure: The patient is a 53-year-old male who presents with progressive right shoulder pain after a recent injury despite attempted conservative measures. A discussion of the risks and benefits of operative intervention versus continued conservative measures was made with the patient. He opted to proceed with surgery. Operative risks include infection, neurovascular injury, development of blood clots, possible tendon rerupture, possible postoperative stiffness, and possible need for subsequent procedures was discussed. Informed consent was obtained. Operative Findings: As below Description of Procedure: The patient was brought to the operating room, and after induction of general anesthesia was placed in a beachchair position. A preoperative interscalene block was placed for postoperative analgesia. I examined the right shoulder. There was no gross block to passive motion or gross glenohumeral instability. The right upper extremity was prepped and draped in normal fashion. The bony outlines the acromion, distal clavicle, and coracoid process were outlined with a skin marker. The glenohumeral joint was inflated with 50 mL of saline utilizing a spinal needle from posterior approach. A posterior portal was made through a 5 mm skin incision 1 cm medial and inferior to the posterior lateral border time. A blunt trocar was used to easily into the joint. Diagnostic arthroscopy was performed. An anterior portal was made just lateral to the coracoid process entering the joint above the subscapularis tendon. The subscapularis tendon appeared to be intact. Anterior labrum was intact. The in ferior recess was inspected. The posterior labrum was intact. There was a high-grade partial-thickness tear of the long head of the biceps involving interarticular portion. It was elected to proceed with release at this point. This was released from the superior labrum with electrocautery and was allowed to retract to the bicipital groove. On inspection the rotator cuff, a full- thickness tear involve the anterior supraspinatus was noted. The posterior portion of the rotator cuff appeared to be intact. The arthroscope was placed into the subacromial space.. A lateral portal was made 2 centimeters inferior to the anterior lateral border of the acromion. The rotator cuff was then identified and easily mobilized. It measured approximate 1 and half centimeters. Minimal retraction was noted. The soft tissue on the undersurface of the acromion was debrided with a motorized shaver and electrocautery clearly defining the anterior medial and lateral borders as well as the distal clavicle. An anterior inferior acromioplasty was performed with a motorized eric starting anterolateral, then extending this posteriorly, then extending this medially. I converted to a flat acromion and this was verified in the posterior and lateral viewing portals. The greater tuberosity was lightly decorticating with a shaver down to a bleeding bony surface. An accessory superior lateral portal was made just off the posterior lateral edge of the acromion for additional viewing. A scorpion suture passer was used to pass #2 fiber tape through the anterior supraspinatus tear. An additional fiber link was placed. A 5.5 mm lateral anchor was then placed after appropriate soft tissue tensioning. Final arthroscopic view showed adequate compression at the footprint. The arthroscope was then removed. The portals were closed with simple 3-0 nylon sutures. A sterile dressing was applied in addition to an abductor brace. The patient was then awoken from general anesthesia and transferred to recovery room in good condition. Blood loss was estimated at 10 mL. No complications were incurred. Sponge and needle counts were correct in the case. Triston PICHARDO assisted and the major components of the case to include arm positioning, anchor placement, and rotator cuff repair.
[2024-06-28] MEDS: HYDROmorphone 0.5 MG/0.5 ML SYRINGE IVP PRN (11:44)
[2024-06-28 11:48] VITALS: TEMP 96.8
[2024-06-28] MEDS: HYDROcodone/APAP 7.5-325MG 1 EACH TAB PO PRN (13:12)
[2024-06-28 14:04] VITALS: BP 128/70; PULSE 80
--- NOTE | 2024-06-30 16:10 | P.ANPRN ---
Procedure Note - Anesthesia - Nerve Block Performed Right Interscalene Single Time Out Performed: Yes Date of Procedure: 06/28/24 Procedure Start Time: Procedure Stop Time: Location of Patient: PreOp Indication: Acute Post-Operative Pain, Requested by Surgeon Sedation Type: Sedate with meaningful contact maintained Preparation: Sterile Prep Position: Supine Needle Types: Pajunk Needle Gauge: 21 Ultrasound used to visualize needle placement: Yes Ultrasound used to observe medication spread: Yes Blood Aspirated: No Pain Paresthesia on Injection Noted: No Resistance on Injection: Normal Image Stored and Saved: Yes Events: Uneventful and Well Tolerated (Ropivacaine 0.5% 20 cc plus dexamethasone 4 mg)
== END 2024-06-28 14:04 | disposition home or self-care (01) ==
LOC: OR 08:01
PROVIDERS: ATTEND Orthopaedic Surgery
DX: M75.101 Unspecified rotator cuff tear or rupture of right shoulder, not specified as traumatic (principal); J45.909 Unspecified asthma, uncomplicated; I10 Essential (primary) hypertension; E78.5 Hyperlipidemia, unspecified; E11.9 Type 2 diabetes mellitus without complications; K21.9 Gastro-esophageal reflux disease without esophagitis; F17.210 Nicotine dependence, cigarettes, uncomplicated; M19.011 Primary osteoarthritis, right shoulder; Z87.442 Personal history of urinary calculi; Z82.49 Family history of ischemic heart disease and other diseases of the circulatory system; Z83.3 Family history of diabetes mellitus; Z83.79 Family history of other diseases of the digestive system; Z88.8 Allergy status to other drugs, medicaments and biological substances; Z79.02 Long term (current) use of antithrombotics/antiplatelets; Z79.82 Long term (current) use of aspirin; Z79.899 Other long term (current) drug therapy
CPT/HCPCS: 29827; 29828; 64415; 29826; C1894; C1713; J2250; J0330; J1100; J2710; J0690; J2405; J0171; J2003; J3010; J2795; J2704; J1171; J2371; J1596